=== PATIENT | female | born 1985 | race African-American/Black ===

== ENCOUNTER 2017-08-08 09:45 | Emergency (ER) | payer MEDICAID ==
[2017-08-08 09:52] VITALS: BP 125/71
[2017-08-08] MEDS ORDERED: Ketorolac 60 MG/2 ML SDV IM ONE (12:01)
[2017-08-08] MEDS ORDERED: Sodium Chloride 0.9% 10 ML Syringe FLUSH PRN (13:46)
--- NOTE | 2017-08-08 14:13 | EDM.PDOC ---
ED HPI GENERAL MEDICAL PROBLEM - General Chief Complaint: Lower Extremity Injury/Pain Stated Complaint: [facility] Time Seen by Provider: 08/08/17 11:20 Source of Information: Reports: Patient History Limitations: Reports: No Limitations - History of Present Illness INITIAL COMMENTS - FREE TEXT/NARRATIVE: 32 year old female presents via [facility] ambulance service for evaluation and treatment of bodyaches. Patient reports she has been experiencing body aches off and on for "a while". More recently has been experiencing pain constantly the last 2-3 weeks. Patient reports her sister had RA and she is concerned she has this too. She relocated from [place] to [place] in December. Has not yet established with a PCP. Reports in July in [place] she had blood drawn for a RA work-up but does not know the results. Reports she experiences pain in her joints, Greatest in her knees and left ankle. Also reports pain in her hands , elbows and shoulders. Describes the pain as a bag of water with particles in it and states her joints feel "mushy". Patient also reports tingling in the extremities and swelling in the joints. No skin rashes. Reports the joint pain is worse with movement. No weather correlation. Patient also reports a sore throat and neck pain the last 2 days. Reports associated symptoms of right ear pain, a dry mouth, bodyaches and nausea. No fevers, vomiting, cough, headaches or sinus pressure. She did not get a flu shot this year. 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 Left Leg Pain Score (Numeric/FACES): 8 - Related Data Allergies Allergy/AdvReac Type Severity Reaction Status Date / Time No Known Allergies Allergy Verified 08/08/17 09:52 Home Meds: Home Meds Doxycycline [Vibramycin] 100 mg PO BID #28 tablet 05/16/15 [Rx] Naproxen 500 mg PO BID #20 tablet 05/16/15 [Rx] Ciprofloxacin [Ciprofloxacin HCl] 500 mg PO BID #20 tablet 08/08/17 [Rx] Doxycycline [Vibramycin] 100 mg PO BID #20 cap 08/08/17 [Rx] Past Medical History - Past Health History Medical/Surgical History: Denies Medical/Surgical History Cardiovascular History: Reports: Heart Murmur, High Cholesterol - Past Surgical History GI Surgical History: Reports: Hernia Repair/Other Social & Family History - Family History Family Medical History: Noncontributory - Tobacco Use Smoking Status *Q: Current Every Day Smoker Years of Tobacco use: 12 Packs/Tins Daily: 0.5 Second Hand Smoke Exposure: Yes - Alcohol Use Days Per Week of Alcohol Use: 3 Number of Drinks Per Day: 6 Total Drinks Per Week: 18 - Recreational Drug Use Recreational Drug Use: No Review of Systems - Review of Systems Review Of Systems: See Below Constitutional: Reports: Other (reports body aches). Denies: Fever Ears: Reports: Pain (right) Mouth/Throat: Reports: Painful Swallowing, Other (reports a sore throat and a dry mouth) GI/Abdominal: Reports: Nausea. Denies: Vomiting Musculoskeletal: Reports: Neck Pain, Joint Pain (knees and left ankle ), Joint Swelling (bilaterla knees and nilateral ankles ) Skin: Denies: Rash Neurological: Reports: Tingling. Denies: Headache, Numbness ED EXAM, GENERAL - Physical Exam Exam: See Below Exam Limited By: No Limitations General Appearance: Alert, WD/WN, No Apparent Distress Eye Exam: Bilateral Eye: Normal Inspection Ears: Normal External Exam, Normal Canal, Hearing Grossly Normal, Normal TMs Nose: Normal Inspection Throat/Mouth: Normal Inspection, Normal Lips, Normal Oropharynx, Normal Voice, No Airway Compromise Neck: Normal Inspection, Full Range of Motion, Lymphadenopathy (L), Lymphadenopathy (R) Respiratory/Chest: No Respiratory Distress, Lungs Clear, Normal Breath Sounds Cardiovascular: Normal Peripheral Pulses, Regular Rate, Rhythm, No Murmur GI/Abdominal: Soft, Non-Tender Extremities: Normal Inspection, Normal Range of Motion, No Pedal Edema, Normal Capillary Refill. No: Joint Swelling, Increased Warmth Neurological: Alert, Oriented, Normal Cognition Psychiatric: Normal Affect, Normal Mood Skin Exam: Warm, Dry, No Rash Course - Vital Signs Last Recorded V/S: Last Vital Signs Temp 36.4 C 08/08/17 09:48 Pulse 90 08/08/17 09:48 Resp 16 08/08/17 09:48 BP 125/71 08/08/17 09:48 Pulse Ox 100 08/08/17 09:48 - Orders/Labs/Meds Labs: Laboratory Tests 08/08/17 08/08/17 08/08/17 Range/Units 11:45 11:45 11:45 WBC 10.88 H (3.98-10.04) K/mm3 RBC 4.65 (3.98-5.22) M/mm3 Hgb 13.2 (11.2-15.7) gm/L Hct 40.3 (34.1-44.9) % MCV 86.7 (79.4-94.8) fl MCH 28.4 (25.6-32.2) pg MCHC 32.8 (32.2-35.5) g/dl RDW Std Deviation 45.0 (36.4-46.3) fL Plt Count 256 (182-369) K/mm3 MPV 10.7 (9.4-12.3) fl Neutrophils % (Manual) 70 H (40-60) % Band Neutrophils % 0 (0-10) % Lymphocytes % (Manual) 28 (20-40) % Atypical Lymphs % 0 % Monocytes % (Manual) 2 (2-10) % Eosinophils % (Manual) 0 L (0.7-5.8) % Basophils % (Manual) 0 L (0.1-1.2) Platelet Estimate Adequate RBC Morph Comment Normal Sodium 140 (136-145) mEq/L Potassium 4.2 (3.5-5.1) mEq/L Chloride 107 (98-107) mEq/L Carbon Dioxide 25 (21-32) mEq/L Anion Gap 12.2 (5-15) BUN 7 (7-18) mg/dL Creatinine 0.7 (0.55-1.02) mg/dL Est Cr Clr Drug Dosing 97.21 mL/min Estimated GFR (MDRD) > 60 (>60) mL/min BUN/Creatinine Ratio 10.0 L (14-18) Glucose 79 (74-106) mg/dL Calcium 9.2 (8.5-10.1) mg/dL Total Bilirubin 0.4 (0.2-1.0) mg/dL AST 12 L (15-37) U/L ALT 17 (14-59) U/L Alkaline Phosphatase 70 (46-116) U/L C-Reactive Protein 1.5 H* (<1.0) mg/dL Total Protein 7.4 (6.4-8.2) g/dl Albumin 3.5 (3.4-5.0) g/dl Globulin 3.9 gm/dL Albumin/Globulin Ratio 0.9 L (1-2) HCG, Qual (NEGATIVE) Monoscreen Negative (NEGATIVE) 08/08/17 Range/Units 11:45 WBC (3.98-10.04) K/mm3 RBC (3.98-5.22) M/mm3 Hgb (11.2-15.7) gm/L Hct (34.1-44.9) % MCV (79.4-94.8) fl MCH (25.6-32.2) pg MCHC (32.2-35.5) g/dl RDW Std Deviation (36.4-46.3) fL Plt Count (182-369) K/mm3 MPV (9.4-12.3) fl Neutrophils % (Manual) (40-60) % Band Neutrophils % (0-10) % Lymphocytes % (Manual) (20-40) % Atypical Lymphs % % Monocytes % (Manual) (2-10) % Eosinophils % (Manual) (0.7-5.8) % Basophils % (Manual) (0.1-1.2) Platelet Estimate RBC Morph Comment Sodium (136-145) mEq/L Potassium (3.5-5.1) mEq/L Chloride (98-107) mEq/L Carbon Dioxide (21-32) mEq/L Anion Gap (5-15) BUN (7-18) mg/dL Creatinine (0.55-1.02) mg/dL Est Cr Clr Drug Dosing mL/min Estimated GFR (MDRD) (>60) mL/min BUN/Creatinine Ratio (14-18) Glucose (74-106) mg/dL Calcium (8.5-10.1) mg/dL Total Bilirubin (0.2-1.0) mg/dL AST (15-37) U/L ALT (14-59) U/L Alkaline Phosphatase (46-116) U/L C-Reactive Protein (<1.0) mg/dL Total Protein (6.4-8.2) g/dl Albumin (3.4-5.0) g/dl Globulin gm/dL Albumin/Globulin Ratio (1-2) HCG, Qual Negative (NEGATIVE) Monoscreen (NEGATIVE) Meds: Medications Discontinued Medications Generic Name Dose Route Start Last Admin Trade Name Freq PRN Reason Stop Dose Admin Ceftriaxone Sodium 2 gm 08/08/17 15:26 08/08/17 16:17 Rocephin IM 08/08/17 15:27 Not Given ONETIME ONE Ceftriaxone Sodium Confirm 08/08/17 16:01 08/08/17 16:17 Rocephin Administered 08/08/17 16:02 Not Given Dose 1 gm .ROUTE .STK-MED ONE Ceftriaxone Sodium 1 gm/ 0 gm 08/08/17 16:00 Lidocaine HCl 2.1 ml IM Q24H STACI Ceftriaxone Sodium 1 gm/ 0 gm 08/08/17 16:00 08/08/17 16:12 Lidocaine HCl 2.1 ml IM 1 inj Q24H STACI Administration Ceftriaxone Sodium 1 gm/ 0 gm 08/08/17 16:00 08/08/17 16:13 Lidocaine HCl 2.1 ml IM 1 inj Q24H STACI Administration Iopamidol 100 ml 08/08/17 14:31 08/08/17 14:36 Isovue-300 (61%) IVPUSH 08/08/17 14:32 100 ml ONETIME ONE Administration Ketorolac Tromethamine 60 mg 08/08/17 12:01 08/08/17 12:18 Toradol IM 08/08/17 12:02 60 mg ONETIME ONE Administration Sodium Chloride 10 ml 08/08/17 13:46 08/08/17 14:36 Saline Flush FLUSH 10 ml ASDIRECTED PRN Administration Keep Vein Open Sodium Chloride 10 ml 08/08/17 14:31 08/08/17 14:46 Saline Flush FLUSH 08/08/17 14:32 10 ml ONETIME ONE Administration - Radiology Interpretation Free Text/Narrative:: CT neck Technique: Multiple axial sections through the neck were obtained. Intravenous contrast was utilized. Reconstructed coronal and sagittal images were obtained. Findings: Visualized lung apices are clear. Thyroid gland appears within normal limits. Low density is seen within portions of the left submandibular salivary gland. Please correlate if patient has any symptoms of sialadenitis in this area as an etiology for the low density. This does not appear to be masslike at this time. Right submandibular salivary gland appears normal. Parotid salivary glands appear normal. Mild mucosal thickening is noted within the right maxillary sinus with no air- fluid levels. Scattered lymph nodes are seen which are believed to be within normal limits. Bone window settings were reviewed showing minimal degenerative change within the spine. Small low density area also noted within the lower left parapharyngeal soft tissues. This could also represent an area of mild edema from infection. Impression: 1. Low density within the left submandibular salivary gland possibly representing sialadenitis, please correlate. 2. Mucosal thickening within the right maxillary sinus which appears to be chronic. 3. Small low-density area within the left lower parapharyngeal soft tissues possibly representing infection with mild edema. Please correlate if patient is symptomatic of this. 4. Other incidental findings. - Re-Assessments/Exams Free Text/Narrative Re-Assessment/Exam: 08/08/17 13:50 Influenza and rapid strep returned negative. I reviewed the labs with the patient. She is very concerned about her neck and stresses this more than her other problems currently. Will obtain a CT of the neck to rule out abscess. 08/08/17 15:[address] and lab results with the patient. Encouraged to use lemon drops for the sialadenitis. case discussed with Dr. Lopez. Recommended IM rocephin in the ER and start on PO doxycycline and cipro. Follow-up in 3 days. Discharge instructions as documented. Departure - Departure Time of Disposition: 15:40 Disposition: Home, Self-Care 01 Condition: Fair Clinical Impression: Sialadenitis, Sinusitis, Parapharyngeal space mass - Discharge Information Prescriptions: Ciprofloxacin [Ciprofloxacin HCl] 500 mg PO BID #20 tablet Doxycycline [Vibramycin] 100 mg PO BID #20 cap Instructions: Sinusitis, Adult, [id number] Referrals: PCP,None [Primary Care Provider] - Yanira Hooks [Physician] - Forms: ED Department Discharge, ED Return to Work/School Form Additional Instructions: Take the ciprofloxacin 1 tab twice a day for 10 days. Take the doxycycline 1 tab twice a day for 10 days. Recommend starting a probiotic. These are available [id number]. Rest. make sure you are drinking plenty of fluids. Follow-up with family medicine this or Monday for recheck of your symptoms. Recommend Dr. Hooks at the [facility]. Please call [phone] to schedule with him. Please return to ER if your symptoms change or worsen. Note given for work.
[2017-08-08] MEDS ORDERED: Iopamidol 612 MG/ML 100 ML Bottle IVPUSH ONE (14:31)
[2017-08-08] MEDS ORDERED: Sodium Chloride 0.9% 10 ML Syringe FLUSH ONE (14:31)
--- NOTE | 2017-08-08 15:21 | CT ---
CT neck Technique: Multiple axial sections through the neck were obtained. Intravenous contrast was utilized. Reconstructed coronal and sagittal images were obtained. Findings: Visualized lung apices are clear. Thyroid gland appears within normal limits. Low density is seen within portions of the left submandibular salivary gland. Please correlate if patient has any symptoms of sialadenitis in this area as an etiology for the low density. This does not appear to be masslike at this time. Right submandibular salivary gland appears normal. Parotid salivary glands appear normal. Mild mucosal thickening is noted within the right maxillary sinus with no air-fluid levels. Scattered lymph nodes are seen which are believed to be within normal limits. Bone window settings were reviewed showing minimal degenerative change within the spine. Small low density area also noted within the lower left parapharyngeal soft tissues. This could also represent an area of mild edema from infection. Impression: 1. Low density within the left submandibular salivary gland possibly representing sialadenitis, please correlate. 2. Mucosal thickening within the right maxillary sinus which appears to be chronic. 3. Small low-density area within the left lower parapharyngeal soft tissues possibly representing infection with mild edema. Please correlate if patient is symptomatic of this. 4. Other incidental findings. Diagnostic code #3
[2017-08-08] MEDS ORDERED: cefTRIAXone 1 GM Vial IM ONE (15:26)
[2017-08-08] MEDS ORDERED: cefTRIAXone 1 GM, Lidocaine 1% 2.1 ML IM SCH ×6 (16:00)
[2017-08-08] MEDS ORDERED: cefTRIAXone 1 GM Vial ONE (16:01)
== END 2017-08-08 16:20 | disposition home or self-care (01) ==
LOC: JD.ED 09:45
DX: K11.20 Sialoadenitis, unspecified (principal); J32.9 Chronic sinusitis, unspecified; J39.2 Other diseases of pharynx; F17.210 Nicotine dependence, cigarettes, uncomplicated; E78.00 Pure hypercholesterolemia, unspecified
CPT/HCPCS: 36415; 70491; 80053; 84703; 85025; 86140; 86308; 87081; 87430; 87804; 96372; 99284; J0696; J1885; J7050; Q9967

== ENCOUNTER 2017-10-20 14:24 | Emergency (ER) | payer MEDICAID ==
[2017-10-20 14:56] VITALS: BP 129/89
--- NOTE | 2017-10-20 16:07 | EDM.PDOC ---
ED HPI GENERAL MEDICAL PROBLEM - General Chief Complaint: General Stated Complaint: BODY ACHES Time Seen by Provider: 10/20/17 16:07 Source of Information: Reports: Patient History Limitations: Reports: No Limitations - History of Present Illness INITIAL COMMENTS - FREE TEXT/NARRATIVE: 32-year-old female presents to the ED with generalized severe joint pain progressively worsening over the last 6 months. She is currently under the investigation by Dr. Cope for potential rheumatoid arthritis. Said some lab tests but she required further testing which was done this morning. She states that she aches so bad in her joints particularly in the morning takes an hour and a half to 2 hours to limber up enough to be able to walk. The only joints that seem to be spared her her lower back and hips. Her hands and feet are particularly bad and recently her temporal mandibular joints and upper midneck also became more painful. She has a sister who has a inflammatory connective tissue disorder and she took some of her steroids about 3 months ago. She states after 5 days she felt completely back to normal. Within 5 days of discontinuing medication symptoms return. He has a strong family history of connective tissue disease. She reports that her symptoms are so bad that she aches so bad in the morning that she has to have her son help her get dressed due to being so stiff and sore. She is extremely disabled by current disease process. Onset: Gradual (Over the last 6 months.) Onset Date: 04/26/17 Duration: Week(s):, Chronic, Constant, Getting Worse Location: Reports: Generalized (Involves all of her joints except for her low back and hips.) Quality: Reports: Ache, Throbbing Severity: Moderate (Rates pain 6 out of 10.) Improves with: Reports: Other (Motrin helps a little bit.) Worsens with: Reports: Movement (Movement makes it better after a while but) Context: Denies: Activity ( when she sits for a period time she's right back where she started), Exercise, Lifting, Sick Contact Associated Symptoms: Denies: No Other Symptoms, Confusion, Chest Pain, Cough, cough w sputum, Diaphoresis, Fever/Chills, Headaches, Loss of Appetite, Malaise , Nausea/Vomiting, Rash, Seizure, Shortness of Breath, Syncope, Weakness Treatments SLUBBER TENDER: Reports: NSAIDS (Motrin) Bilateral Shoulder Pain Score (Numeric/FACES): 9 - Related Data Allergies Allergy/AdvReac Type Severity Reaction Status Date / Time No Known Allergies Allergy Verified 08/08/17 09:52 Home Meds: Home Meds Doxycycline [Vibramycin] 100 mg PO BID #24 cap 10/20/17 [Rx] Prednisone [IJD: predniSONE] 20 mg PO ASDIRECTED #20 tab 10/20/17 [Rx] Past Medical History - Past Health History Medical/Surgical History: Denies Medical/Surgical History Cardiovascular History: Reports: Heart Murmur, High Cholesterol - Past Surgical History GI Surgical History: Reports: Hernia Repair/Other Other GI Surgeries/Procedures: navel area hernia repaired Female Surgical History: Reports: Section Social & Family History - Family History Family Medical History: Noncontributory - Tobacco Use Smoking Status *Q: Current Every Day Smoker Years of Tobacco use: 20 Packs/Tins Daily: 1 Second Hand Smoke Exposure: Yes - Caffeine Use Caffeine Use: Reports: Coffee, Soda, Tea - Alcohol Use Days Per Week of Alcohol Use: 3 Number of Drinks Per Day: 6 Total Drinks Per Week: 18 - Recreational Drug Use Recreational Drug Use: No Recreational Drug Type: Reports: Marijuana/Hashish - Living Situation & Occupation Living situation: Reports: Single Occupation: Unemployed ED ROS GENERAL - Review of Systems Review Of Systems: See Below Constitutional: Reports: Malaise, Weakness, Fatigue, Decreased Appetite. Denies : Fever, Chills, Weight Loss HEENT: Reports: Other Respiratory: Reports: No Symptoms (Pain in her temporomandibular joints bilaterally), Cough Cardiovascular: Reports: No Symptoms Endocrine: Reports: Fatigue (Occasional cough and she is a smoker.) GI/Abdominal: Reports: No Symptoms : Reports: No Symptoms Musculoskeletal: Reports: Joint Pain (Generalized joint pain including feet and ankles knees fingers wrists elbows neck and shoulders.), Muscle Pain, Other Skin: Reports: No Symptoms Neurological: Reports: No Symptoms Psychiatric: Reports: No Symptoms Hematologic/Lymphatic: Reports: No Symptoms Immunologic: Reports: No Symptoms ED EXAM, GENERAL - Physical Exam Exam: See Below Exam Limited By: No Limitations General Appearance: Alert, WD/WN, No Apparent Distress Eye Exam: Bilateral Eye: Normal Inspection Ears: Normal TMs Throat/Mouth: Normal Inspection, Normal Lips, Normal Teeth, Normal Oropharynx Head: Atraumatic, Normocephalic Neck: Normal Inspection, Supple, Non-Tender, Full Range of Motion Respiratory/Chest: No Respiratory Distress, Lungs Clear, Normal Breath Sounds, No Accessory Muscle Use, Respiratory Distress (Mild tachypnea at rest 20/m.) Cardiovascular: Normal Peripheral Pulses, Regular Rate, Rhythm, No Edema, No Gallop, No Murmur, No Rub Peripheral Pulses: 2+: Posterior Tibial (L), Posterior Tibial (R), Dorsalis Pedis (L), Dorsalis Pedis (R) GI/Abdominal: Normal Bowel Sounds, Soft, Non-Tender, No Organomegaly Back Exam: Normal Inspection, Full Range of Motion. No: CVA Tenderness (L), CVA Tenderness (R) Extremities: Other Neurological: Alert (No active synovitis i.e. heat coming from any of her joints could be an identified. There is swelling of the MCP joints. There is pain with pronation supination at the elbow and similarly at the knees bilaterally.), Oriented, CN II-XII Intact, Normal Cognition, Normal Gait, No Motor/Sensory Deficits Psychiatric: Normal Affect, Normal Mood Skin Exam: Warm, Dry, Intact, Normal Color, No Rash EKG INTERPRETATION EKG Date: 10/20/17 Time: 16:32 Rhythm: NSR Rate (Beats/Min): 78 Hazel: Normal P-Wave: Present QRS: Normal ST-T: Elevated (There is mild ST segment elevation less than 1 mm in leads 23 aVF V4 to V6. Cannot rule out ischemia.) QT: Normal EKG Interpretation Comments: Abnormal ECG Course - Vital Signs Last Recorded V/S: Last Vital Signs Temp 36.1 C 10/20/17 14:55 Pulse 90 10/20/17 14:55 Resp 20 10/20/17 14:55 BP 129/89 10/20/17 14:55 Pulse Ox 95 10/20/17 14:55 - Orders/Labs/Meds Orders: Active Orders 24 hr Category Date Time Status EKG Documentation Completion [RC] ASDIRECTED Care 10/20/17 15:58 Active Peripheral IV Care [RC] . DIRECTED Care 10/20/17 16:27 Active Ketorolac [Toradol] Med 10/20/17 16:30 Active 30 mg IVPUSH ONETIME Sodium Chloride 0.9% [Saline Flush] Med 10/20/17 16:27 Active 10 ml FLUSH ASDIRECTED PRN Peripheral IV Insertion Adult [OM.PC] Stat Oth 10/20/17 16:27 Ordered EKG 12 Lead [EK] Stat Ther 10/20/17 15:57 Ordered Medication Orders Ketorolac Tromethamine (Toradol) 30 mg IVPUSH ONETIME STACI Last Admin: 10/20/17 16:54 Dose: 30 mg Sodium Chloride (Saline Flush) 10 ml FLUSH ASDIRECTED PRN PRN Reason: Keep Vein Open Last Admin: 10/20/17 16:54 Dose: 10 ml Labs: Laboratory Tests 10/20/17 10/20/17 10/20/17 Range/Units 14:15 14:15 14:15 WBC 12.38 H (3.98-10.04) K/mm3 RBC 4.57 (3.98-5.22) M/mm3 Hgb 13.2 (11.2-15.7) gm/L Hct 39.7 (34.1-44.9) % MCV 86.9 (79.4-94.8) fl MCH 28.9 (25.6-32.2) pg MCHC 33.2 (32.2-35.5) g/dl RDW Std Deviation 44.3 (36.4-46.3) fL Plt Count 307 (182-369) K/mm3 MPV 12.3 (9.4-12.3) fl Neutrophils % (Manual) 69 H (40-60) % Band Neutrophils % 0 (0-10) % Lymphocytes % (Manual) 19 L (20-40) % Atypical Lymphs % 0 % Monocytes % (Manual) 10 (2-10) % Eosinophils % (Manual) 2 (0.7-5.8) % Basophils % (Manual) 0 L (0.1-1.2) Platelet Estimate Adequate RBC Morph Comment Normal ESR 33 H (0-20) mm/hr Sodium 137 (136-145) mEq/L Potassium 3.9 (3.5-5.1) mEq/L Chloride 101 (98-107) mEq/L Carbon Dioxide 23 (21-32) mEq/L Anion Gap 16.9 H (5-15) BUN 8 (7-18) mg/dL Creatinine 0.6 (0.55-1.02) mg/dL Est Cr Clr Drug Dosing 113.41 mL/min Estimated GFR (MDRD) > 60 (>60) mL/min BUN/Creatinine Ratio 13.3 L (14-18) Glucose 114 H (74-106) mg/dL Calcium 9.2 (8.5-10.1) mg/dL Total Bilirubin 0.4 (0.2-1.0) mg/dL AST 41 H (15-37) U/L ALT 43 (14-59) U/L Alkaline Phosphatase 146 H (46-116) U/L Creatine Kinase (26-192) U/L Troponin I (0.00-0.056) ng/mL C-Reactive Protein 2.9 H* (<1.0) mg/dL Total Protein 8.1 (6.4-8.2) g/dl Albumin 3.4 (3.4-5.0) g/dl Globulin 4.7 gm/dL Albumin/Globulin Ratio 0.7 L (1-2) TSH 3rd Generation (0.358-3.74) uIU/mL 10/20/17 10/20/17 Range/Units 14:15 14:15 WBC (3.98-10.04) K/mm3 RBC (3.98-5.22) M/mm3 Hgb (11.2-15.7) gm/L Hct (34.1-44.9) % MCV (79.4-94.8) fl MCH (25.6-32.2) pg MCHC (32.2-35.5) g/dl RDW Std Deviation (36.4-46.3) fL Plt Count (182-369) K/mm3 MPV (9.4-12.3) fl Neutrophils % (Manual) (40-60) % Band Neutrophils % (0-10) % Lymphocytes % (Manual) (20-40) % Atypical Lymphs % % Monocytes % (Manual) (2-10) % Eosinophils % (Manual) (0.7-5.8) % Basophils % (Manual) (0.1-1.2) Platelet Estimate RBC Morph Comment ESR (0-20) mm/hr Sodium (136-145) mEq/L Potassium (3.5-5.1) mEq/L Chloride (98-107) mEq/L Carbon Dioxide (21-32) mEq/L Anion Gap (5-15) BUN (7-18) mg/dL Creatinine (0.55-1.02) mg/dL Est Cr Clr Drug Dosing mL/min Estimated GFR (MDRD) (>60) mL/min BUN/Creatinine Ratio (14-18) Glucose (74-106) mg/dL Calcium (8.5-10.1) mg/dL Total Bilirubin (0.2-1.0) mg/dL AST (15-37) U/L ALT (14-59) U/L Alkaline Phosphatase (46-116) U/L Creatine Kinase 38 (26-192) U/L Troponin I < 0.017 (0.00-0.056) ng/mL C-Reactive Protein (<1.0) mg/dL Total Protein (6.4-8.2) g/dl Albumin (3.4-5.0) g/dl Globulin gm/dL Albumin/Globulin Ratio (1-2) TSH 3rd Generation 1.195 (0.358-3.74) uIU/mL Meds: Medications Generic Name Dose Route Start Last Admin Trade Name Freq PRN Reason Stop Dose Admin Ketorolac Tromethamine 30 mg 10/20/17 16:30 10/20/17 16:54 Toradol IVPUSH 30 mg ONETIME STACI Administration Sodium Chloride 10 ml 10/20/17 16:27 10/20/17 16:54 Saline Flush FLUSH 10 ml ASDIRECTED PRN Administration Keep Vein Open Discontinued Medications Generic Name Dose Route Start Last Admin Trade Name Freq PRN Reason Stop Dose Admin Ketorolac Tromethamine Confirm 10/20/17 16:50 10/20/17 16:54 Toradol Administered 10/20/17 16:51 Not Given Dose 30 mg .ROUTE .STK-MED ONE Methylprednisolone Sodium Succinate 125 mg 10/20/17 16:27 10/20/17 16:54 Solu-Medrol IVPUSH 10/20/17 16:28 125 mg ONETIME ONE Administration - Radiology Interpretation Free Text/Narrative:: 32-year-old female of -[place] descent presents to the ED with generalized polymyalgia and polydipsia arthralgia involving all her joints except for hips and low back. 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 This was primarily because of increased pain in her hands wrists disability. She has fatigue. She has pain all of her joints including her temporomandibular joints mostly clear her cervical spine. He has a strong family history of connective tissue disorders. She has been seeing Dr. Preston investigations have been started for rheumatoid arthritis and other connective tissue disorders but she does not prevent the results at this time. States that she did try her sisters prednisone for a few days and felt wonderful medication within 2-3 days of stopping the medication her symptoms return. This strongly suggests a connective tissue disorder her's current symptoms are probably symmetrical involving hands wrists elbows feet ankles knees and shoulders and temporomandibular joints. I will order lab work without rheumatoid factor since apparently was done earlier this morning. I will just have a sedimentation rate and CRP TSH and CPK done. Her Toradol 30 mg IV and segmental 125 mg IV here in the ED. - Re-Assessments/Exams Free Text/Narrative Re-Assessment/Exam: 10/20/17 17:23 Labs reveal slightly elevated white count at 12.38 with 69% neutrophils and no bands. Hemoglobin is 13.2 with hematocrit of 39.7. Platelet count is 307,000. Sedimentation rate is elevated at 33. Sodium is 137 with potassium of 3.9. Toward 101 with a bicarbonate of 23. And a gap is mildly elevated at 16.9. BUNs 8 with a creatinine of 0.6. EGFR is greater than 60. Glucose is 114. Calcium is 9.2. Bilirubin is 0.4. AST is 41 mildly elevated ALTs 43. Alk phosphatase is 146. Creatinine kinase is 38. Troponin I is less than 0.017. C-reactive protein is mildly elevated at 2.9. TSH is normal at 1.195. 10/20/17 17:37 her disease process suggest either seronegative or seropositive rheumatoid arthritis. Apparently her primary convert care provider has done an extensive investigation as far as rheumatoid factors and antinuclear antibodies and therefore they were not repeated today. These results should be available early next week and have advised the patient to follow up with him early next week. Also the fact that she responded to steroids in the past is highly suggestive that she has a underlying connective tissue disorder. She likely will require referral to a delivery representative to further define her disease process and hopefully get her back to work. Departure - Departure Time of Disposition: 17:30 Disposition: Home, Self-Care 01 Condition: Fair Clinical Impression: Polyarthralgia - Discharge Information Prescriptions: Doxycycline [Vibramycin] 100 mg PO BID #24 cap Prednisone [IJD: predniSONE] 20 mg PO ASDIRECTED #20 tab Referrals: Yanira Hooks [Primary Care Provider] - Forms: ED Department Discharge Additional Instructions: Evaluation in the emergency him today in regards to generalized polyarthralgia which means multiple joint aches and pains that have been going on for about 6 months. His symptom complex is highly suggestive of rheumatoid arthritis either seronegative or seropositive form of this disorder. Dr. Hooks has ordered specialized tests in this regard and I did not repeat them today. The markers IUs for inflammation and infection were mildly to moderately positive. Just a low-grade underlying infective process which may be due to your current sore throat etc. I'm going to therefore suggest treatment with prednisone 20 mg twice daily for 5 days this is to be taken with breakfast and supper and then once a day in the morning only for another 9 days to complete 14 days of therapy Also a course of doxycycline 100 mg twice daily for 12 days to clear up any infective process which may be contributing to joint symptoms. He did receive a dose of Solu-Medrol which is a steroid intravenously while in the ED which will take about 6-8 hours to work. May continue use Motrin 600 mg every 6 hours necessary to relieve pain and inflammation. Suggest follow-up with Dr. Hooks early next week to get the results of test she ordered and likely a referral to a delivery representative is in order. - My Orders Last 24 Hours: My Active Orders 10/20/17 15:57 EKG 12 Lead [EK] Stat 10/20/17 15:58 EKG Documentation Completion [RC] ASDIRECTED 10/20/17 16:27 Peripheral IV Care [RC] . DIRECTED Sodium Chloride 0.9% [Saline Flush] 10 ml FLUSH ASDIRECTED PRN Peripheral IV Insertion Adult [OM.PC] Stat 10/20/17 16:30 Ketorolac [Toradol] 30 mg IVPUSH ONETIME - Assessment/Plan Last 24 Hours: My Active Orders 10/20/17 15:57 EKG 12 Lead [EK] Stat 10/20/17 15:58 EKG Documentation Completion [RC] ASDIRECTED 10/20/17 16:27 Peripheral IV Care [RC] . DIRECTED Sodium Chloride 0.9% [Saline Flush] 10 ml FLUSH ASDIRECTED PRN Peripheral IV Insertion Adult [OM.PC] Stat 10/20/17 16:30 Ketorolac [Toradol] 30 mg IVPUSH ONETIME
[2017-10-20] MEDS ORDERED: methylPREDNISolone Sodium Succinate 125 MG/2 ML SDV IVPUSH ONE (16:27)
[2017-10-20] MEDS ORDERED: Sodium Chloride 0.9% 10 ML Syringe FLUSH PRN (16:27)
[2017-10-20] MEDS ORDERED: Ketorolac 30 MG/ML SDV IVPUSH SCH (16:30)
[2017-10-20] MEDS ORDERED: Ketorolac 30 MG/ML SDV ONE (16:50)
== END 2017-10-20 17:59 | disposition home or self-care (01) ==
LOC: JD.ED 14:24
DX: M25.542 Pain in joints of left hand (principal); M25.541 Pain in joints of right hand; M25.579 Pain in unspecified ankle and joints of unspecified foot; M26.69 Other specified disorders of temporomandibular joint; M54.2 Cervicalgia; F17.210 Nicotine dependence, cigarettes, uncomplicated
CPT/HCPCS: 36415; 80053; 82550; 84443; 84484; 85025; 85652; 86140; 93005; 96374; 96375; 99284; J1885; J2930; J7050

== ENCOUNTER 2018-05-09 09:34 | Emergency (ER) | payer MEDICAID ==
[2018-05-09 09:50] VITALS: BP 120/89
[2018-05-09] MEDS ORDERED: predniSONE 20 MG Tab PO ONE (09:57)
[2018-05-09] MEDS ORDERED: Acetaminophen/oxyCODONE 325-5 MG Tab PO ONE (09:57)
[2018-05-09] MEDS ORDERED: HYDROmorphone 1 MG/ML Syringe IM ONE (12:22)
--- NOTE | 2018-05-09 12:24 | EDM.PDOC ---
ED HPI GENERAL MEDICAL PROBLEM - General Chief Complaint: Upper Extremity Injury/Pain Stated Complaint: AMBULANCE Time Seen by Provider: 05/09/18 09:44 Source of Information: Reports: Patient, EMS History Limitations: Reports: No Limitations - History of Present Illness INITIAL COMMENTS - FREE TEXT/NARRATIVE: The patient presents by [facility] for a fall and joint pain. The patient was recently diagnosed with rheumatoid arthritis. She has not taken her meds for the past 2 months. She missed her appointment. She has been having more joint pain and she fell because of the pain. She did not injure herself. She has no fever, chills, cough, chest pain, abdominal pain, nausea or vomiting. Onset: Gradual Duration: Week(s): Location: Reports: Generalized Quality: Reports: Sharp Severity: Severe Improves with: Reports: Immobilization Worsens with: Reports: Movement Associated Symptoms: Reports: No Other Symptoms Generalized Pain Score (Numeric/FACES): 9 - Related Data Allergies Allergy/AdvReac Type Severity Reaction Status Date / Time No Known Allergies Allergy Verified 05/09/18 09:39 Home Meds: Home Meds oxyCODONE HCl/Acetaminophen [Percocet 5-325 mg Tablet] 1 - 2 each PO Q6HR PRN # 20 tablet 05/09/18 [Rx] predniSONE [Prednisone] 40 mg PO DAILY #10 tablet 05/09/18 [Rx] Past Medical History - Past Health History Medical/Surgical History: Denies Medical/Surgical History Cardiovascular History: Reports: Heart Murmur, High Cholesterol DEVELOPMENT COORDINATOR History: Reports: Musculoskeletal History: Reports: RA - Past Surgical History GI Surgical History: Reports: Hernia Repair/Other Other GI Surgeries/Procedures: navel area hernia repaired Female Surgical History: Reports: Section Social & Family History - Family History Family Medical History: Noncontributory - Tobacco Use Smoking Status *Q: Current Every Day Smoker Years of Tobacco use: 16 Packs/Tins Daily: 1 - Caffeine Use Caffeine Use: Reports: Coffee, Soda - Recreational Drug Use Recreational Drug Use: Yes Drug Use in Last 12 Months: Yes Recreational Drug Type: Reports: Marijuana/Hashish Recreational Drug Use Frequency: Monthly - Living Situation & Occupation Living situation: Reports: Single Occupation: Unemployed Review of Systems - Review of Systems Review Of Systems: See Below Constitutional: Reports: No Symptoms Eyes: Reports: No Symptoms Ears: Reports: No Symptoms Nose: Reports: No Symptoms Mouth/Throat: Reports: No Symptoms Respiratory: Reports: No Symptoms Cardiovascular: Reports: No Symptoms GI/Abdominal: Reports: No Symptoms Genitourinary: Reports: No Symptoms Musculoskeletal: Reports: Joint Pain ED EXAM, GENERAL - Physical Exam Exam: See Below Exam Limited By: No Limitations General Appearance: Alert, No Apparent Distress Ears: Normal External Exam Nose: Normal Inspection Head: Atraumatic, Normocephalic Neck: Normal Inspection Respiratory/Chest: No Respiratory Distress, Lungs Clear, Normal Breath Sounds Cardiovascular: Regular Rate, Rhythm, No Edema, No Murmur GI/Abdominal: Soft, Non-Tender, No Organomegaly, No Mass Back Exam: Normal Inspection Extremities: Other (She has some edema to her fingers with pain upon palpation) Course - Vital Signs Last Recorded V/S: Last Vital Signs Temp 97.6 F 05/09/18 09:47 Pulse 91 05/09/18 09:47 Resp 16 05/09/18 09:47 BP 120/89 05/09/18 09:47 Pulse Ox 98 05/09/18 09:47 - Orders/Labs/Meds Meds: Medications Discontinued Medications Generic Name Dose Route Start Last Admin Trade Name Freq PRN Reason Stop Dose Admin Hydromorphone HCl 1 mg 05/09/18 12:22 05/09/18 12:34 Dilaudid IM 05/09/18 12:23 1 mg ONETIME ONE Administration Oxycodone/Acetaminophen 2 tab 05/09/18 09:57 05/09/18 10:06 Percocet 325-5 Mg PO 05/09/18 09:58 2 tab ONETIME ONE Administration Prednisone 40 mg 05/09/18 09:57 05/09/18 10:06 Prednisone PO 05/09/18 09:58 40 mg ONETIME ONE Administration - Re-Assessments/Exams Free Text/Narrative Re-Assessment/Exam: 05/09/18 12:26 I ordered percocet and prednisone for the pain. That helped some. I will get her a shot of dilaudid 1mg IM. I am waiting for her medication list. 05/09/18 12:55 They did not send the list. I will get her on some prednisone and percocet for pain. I will have her call her doctor today. Departure - Departure Time of Disposition: 12:55 Disposition: Home, Self-Care 01 Condition: Good Clinical Impression: Polyarthralgia Rheumatoid arthritis Qualifiers: Rheumatoid arthritis location: multiple sites Rheumatoid factor presence: unspecified presence Qualified Code(s): M06.9 - Rheumatoid arthritis, unspecified - Discharge Information *PRESCRIPTION DRUG MONITORING PROGRAM REVIEWED*: No *COPY OF PRESCRIPTION DRUG MONITORING REPORT IN PATIENT RAHUL: No Prescriptions: oxyCODONE HCl/Acetaminophen [Percocet 5-325 mg Tablet] 1 - 2 each PO Q6HR PRN # 20 tablet PRN Reason: Pain predniSONE [Prednisone] 40 mg PO DAILY #10 tablet Referrals: Yanira Hooks [Primary Care Provider] - Forms: ED Department Discharge, ED Return to Work/School Form Additional Instructions: Take the prednisone 2 pills daily for 5 days. Take the percocet as needed for pain. Call your doctor and see if you can get more medicine or another appointment. Please return if you are worse.
== END 2018-05-09 13:15 | disposition home or self-care (01) ==
LOC: JD.ED 09:34
DX: M06.9 Rheumatoid arthritis, unspecified (principal); F17.210 Nicotine dependence, cigarettes, uncomplicated
CPT/HCPCS: 96372; 99284; A9270; J1170

== ENCOUNTER 2019-01-12 12:56 | Emergency (ER) | payer MEDICAID ==
[2019-01-12 13:05] VITALS: BP 139/94
--- NOTE | 2019-01-12 13:42 | EDM.PDOC ---
ED HPI GENERAL MEDICAL PROBLEM - General Chief Complaint: ENT Problem Stated Complaint: TOOTH PAIN Time Seen by Provider: 01/12/19 13:08 Source of Information: Reports: Patient History Limitations: Reports: No Limitations - History of Present Illness INITIAL COMMENTS - FREE TEXT/NARRATIVE: Patient is a 33-year-old female presents ED complaining of left upper front tooth pain, gum line pain, swelling to the upper lip, and left-sided facial pain. Patient has a history of poor dentition. States approximately one year ago the #9 tooth cracked and a portion broke off. For the past 2 days she is experiencing increasing pain to this region. This morning she awoke with the swelling and tenderness to the cheek. She is already on amoxicillin for right ear infection and ruptured TM. She's been on a ten-day course of the amoxicillin with no resolution. No documented fever, nausea vomiting, runny nose , postnasal drip, sinus congestion, sore throat, difficulty swallowing, neck pain, and/or ear drainage. She has a history of rheumatoid arthritis and is on methotrexate and prednisone. She was just recently evaluated in the e.d. for acute rheumatoid arthritis flare. Discharged on prednisone and narcotics. She has not been taking anything for the pain. PCP is at [facility]. Ear discomfort has improved. Left Upper Tooth/Teeth Pain Score (Numeric/FACES): 8 - Related Data Allergies Allergy/AdvReac Type Severity Reaction Status Date / Time No Known Allergies Allergy Verified 05/09/18 09:39 Home Meds: Home Meds Hydroxychloroquine [Plaquenil] 200 mg PO BID 12/01/18 [History] Meloxicam 15 mg PO DAILY #12 tablet 12/01/18 [Rx] Methotrexate Sodium [Methotrexate] 5 tab PO ASDIRECTED 12/01/18 [History] predniSONE [Deltasone] 20 mg PO ASDIRECTED #21 tablet 12/01/18 [Rx] Clindamycin HCl 300 mg PO TID #21 capsule 01/12/19 [Rx] Past Medical History - Past Health History Medical/Surgical History: Denies Medical/Surgical History Cardiovascular History: Reports: High Cholesterol, 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: Musculoskeletal History: Reports: Arthritis, RA - Past Surgical History GI Surgical History: Reports: Hernia, Abdominal, Hernia Repair/Other Female Surgical History: Reports: Section Social & Family History - Family History Family Medical History: Noncontributory - Tobacco Use Smoking Status *Q: Current Every Day Smoker Years of Tobacco use: 20 Packs/Tins Daily: 1 - Caffeine Use Caffeine Use: Reports: Coffee, Soda - Recreational Drug Use Recreational Drug Use: No - Living Situation & Occupation Living situation: Reports: with Family, Single 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 ED EXAM, ENT - Physical Exam Exam: See Below Exam Limited By: No Limitations General Appearance: Alert, WD/WN, No Apparent Distress, Other (mild swelling to the upper lip with no lesions or pain present. Mild pain with palpation of the left cheek with no swelling. ) Eye Exam: Bilateral Eye: Normal Inspection, PERRL Ears: Normal External Exam, Normal Canal, Hearing Grossly Normal, Normal TMs Nose: Normal Inspection, Normal Mucousa, No Blood Mouth/Throat: Normal Inspection, Normal Gums (no swelling. pain with palpation to the upper gumline along the #9 tooth. ), Dental Tenderness (#9 tooth... ), Dental Trauma (#9 tooth, poor dentition throughout her mouth.). No: Dental Abcess, Drooling, Dry Mucous Membrane, Gum Swelling, Hoarse Voice, Muffled Voice , Oral Ulcers, Peritonsillar Mass, Pharyngeal Erythema, Throat Pain, Throat Swelling, Tongue Swelling, Tonsillar Erythema, Tonsillar Exudates, Tonsillar Swelling, Trismus, Uvular Deviation Head: Atraumatic, Normocephalic Neck: Normal Inspection, Supple, Non-Tender, Full Range of Motion. No: Lymphadenopathy (L), Lymphadenopathy (R) Respiratory/Chest: No Respiratory Distress, No Accessory Muscle Use Cardiovascular: Normal Peripheral Pulses, Regular Rate, Rhythm Neurological: Alert, Oriented, CN II-XII Intact, Normal Cognition, No Motor/ Sensory Deficits Psychiatric: Normal Affect, Normal Mood Skin: Warm, Dry, Intact, Normal Color, No Rash Course - Vital Signs Last Recorded V/S: Last Vital Signs Temp 97.9 F 01/12/19 13:03 Pulse 90 01/12/19 13:03 Resp 20 01/12/19 13:03 BP 139/94 H 01/12/19 13:03 Pulse Ox 100 01/12/19 13:03 - Re-Assessments/Exams Free Text/Narrative Re-Assessment/Exam: Patient is mental compromise with taking prednisone and methotrexate. She has a history of acute otitis media with ruptured TM resolved with the amoxicillin. Unfortunately this has not worked for the dental issue she currently has today. With IV and said there is some swelling to the upper lip and tenderness with palpation of the upper gum line and also left cheek. She has severely poor dentition that requires consultation by oral surgeon for extraction. I will broaden the antibiotic coverage with clindamycin. Patient was instructed utilize ibuprofen or Aleve along with Tylenol for the discomfort. Stop the amoxicillin and take a [id number] probiotic since she is increased risk for developing C. difficile. Patient voiced understanding that there is a risk for developing C. difficile with taking antibiotics. She understands that repeated antibiotic therapy will increase her risk for cdiff and needs to have decayed teeth repaired or extracted. Return precautions were discussed with the patient. Departure - Departure Time of Disposition: 13:49 Disposition: Home, Self-Care 01 Clinical Impression: Chronic dental infection, Dental caries extending into dentin - Discharge Information Prescriptions: Clindamycin HCl 300 mg PO TID #21 capsule Instructions: Dental Abscess, [id number] Referrals: Karla Castellon PA-C [Primary Care Provider] - Forms: ED Department Discharge, ED Return to Work/School Form Additional Instructions: Please call and make an appointment with a dentist/oral surgeon of your choice for this coming week. It is imperative that you be reevaluated this week for definitive treatment which is extraction of the severely damaged teeth present. This is the culprit here current complaint. Treatment will consist of clindamycin 300 mg 3 times a day for the next 7 days. Utilize ibuprofen 600 mg 3 times a day for pain. May also utilize Tylenol 650 mg 4 times a day for pain as well. Taking [id number] probiotic for the next month. Return to the ED if you develop any new or worsening symptoms.
== END 2019-01-12 14:08 | disposition home or self-care (01) ==
LOC: JD.ED 12:56
DX: K04.7 Periapical abscess without sinus (principal); E78.00 Pure hypercholesterolemia, unspecified; F17.210 Nicotine dependence, cigarettes, uncomplicated; Z79.899 Other long term (current) drug therapy
CPT/HCPCS: 99282; 99283

== ENCOUNTER 2019-01-15 15:08 | Emergency (ER) | payer MEDICAID ==
[2019-01-15 15:55] VITALS: BP 161/90
[2019-01-15] MEDS ORDERED: Ketorolac 30 MG/ML SDV IM ONE (16:04)
[2019-01-15] MEDS ORDERED: Acetaminophen/HYDROcodone 325-5 MG Tab PO ONE (16:06)
[2019-01-15] MEDS ORDERED: Dexamethasone 10 MG/ML SDV IM ONE (16:27)
[2019-01-15] MEDS ORDERED: Ketorolac 30 MG/ML SDV ONE (16:52)
--- NOTE | 2019-01-15 17:23 | EDM.PDOC ---
ED HPI GENERAL MEDICAL PROBLEM - General Chief Complaint: Upper Extremity Injury/Pain Stated Complaint: RIGHT ARM COMPLAINT/PAIN Time Seen by Provider: 01/15/19 15:56 Source of Information: Reports: Patient History Limitations: Reports: No Limitations - History of Present Illness INITIAL COMMENTS - FREE TEXT/NARRATIVE: 33 y/o female presents to ER with cc sever right hand pain. She states the pain started this morning as a throbbing sensation and then her "hand locked up. " She wrapped it up with a kwasi wrap, but the pain got worse. She has a history or RA and was taking methotrexate but ran out of her medications. She has not taken anything for pain because she didn't have anything. She denies any fever, chills or body aches. She is tearful and appears to be uncomfortable. She reports having a rheumatoid specialist in [place] but missed her last appointment. Onset: Today Onset Date: 01/15/19 Onset Time: 09:00 Duration: Getting Worse, Intermittent Location: Reports: Upper Extremity, Right Quality: Reports: Throbbing Severity: Moderate Improves with: Reports: None Worsens with: Reports: Movement Associated Symptoms: Denies: Chest Pain, Fever/Chills, Malaise, Nausea/Vomiting , Rash, Syncope, Weakness Right Hand Pain Score (Numeric/FACES): 10 - Related Data Allergies Allergy/AdvReac Type Severity Reaction Status Date / Time No Known Allergies Allergy Verified 01/15/19 15:55 Home Meds: Home Meds Hydroxychloroquine [Plaquenil] 200 mg PO BID 12/01/18 [History] Methotrexate Sodium [Methotrexate] 5 tab PO ASDIRECTED 12/01/18 [History] predniSONE [Deltasone] 20 mg PO ASDIRECTED #21 tablet 12/01/18 [Rx] Clindamycin HCl 300 mg PO TID #21 capsule 01/12/19 [Rx] Meloxicam 15 mg PO DAILY 12 Days #12 tablet 01/15/19 [Rx] predniSONE 40 mg PO WITHBREAKFAST 5 Days #5 tab 01/15/19 [Rx] Past Medical History - Past Health History Medical/Surgical History: Denies Medical/Surgical History Cardiovascular History: Reports: High Cholesterol, Heart Murmur [employer] History: Reports: Musculoskeletal History: Reports: Arthritis, RA - Past Surgical History GI Surgical History: Reports: Hernia, Abdominal, Hernia Repair/Other Female Surgical History: Reports: Section Social & Family History - Family History Family Medical History: Noncontributory - Tobacco Use Smoking Status *Q: Current Every Day Smoker Years of Tobacco use: 10 Packs/Tins Daily: 0.5 - Caffeine Use Caffeine Use: Reports: Coffee, Soda - Recreational Drug Use Recreational Drug Use: No - Living Situation & Occupation Living situation: Reports: with Family, Single 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) Review of Systems - Review of Systems Review Of Systems: See Below Constitutional: Denies: Chills, Fever Eyes: Reports: No Symptoms Ears: Reports: No Symptoms Nose: Reports: No Symptoms Mouth/Throat: Reports: No Symptoms Respiratory: Reports: No Symptoms Cardiovascular: Reports: No Symptoms GI/Abdominal: Reports: No Symptoms Genitourinary: Reports: No Symptoms Musculoskeletal: Reports: Arm Pain (right hand pain) Skin: Reports: No Symptoms Psychiatric: Reports: No Symptoms ED EXAM, GENERAL - Physical Exam Exam: See Below Exam Limited By: No Limitations General Appearance: Alert, WD/WN, No Apparent Distress Peripheral Pulses: 4+: Brachial (L), Brachial (R), Radial (L), Radial (R) Extremities: Normal Inspection, Normal Range of Motion, Normal Capillary Refill , Arm Pain (right palm tenderness, decreased ROM due to pain, neurovascularly intact. ), Limited Range of Motion. No: Redness Neurological: Alert, Oriented, CN II-XII Intact, Normal Cognition, Normal Gait Psychiatric: Normal Affect, Normal Mood Skin Exam: Warm, Dry, Intact, Normal Color, No Rash Lymphatic: No Adenopathy Course - Vital Signs Last Recorded V/S: Last Vital Signs Temp 98.6 F 01/15/19 15:53 Pulse 114 H 01/15/19 15:53 Resp 16 01/15/19 15:53 BP 161/90 H 01/15/19 15:53 Pulse Ox 97 01/15/19 15:53 - Orders/Labs/Meds Labs: Laboratory Tests 01/15/19 Range/Units 16:08 Urine HCG, Qual Negative (NEGATIVE) Meds: Medications Discontinued Medications Generic Name Dose Route Start Last Admin Trade Name Freq PRN Reason Stop Dose Admin Hydrocodone Bitart/Acetaminophen 1 tab 01/15/19 16:06 01/15/19 16:22 [place] 325-5 Mg PO 01/15/19 16:07 1 tab ONETIME ONE Administration Dexamethasone 15 mg 01/15/19 16:27 01/15/19 16:35 Dexamethasone IM 01/15/19 16:28 15 mg ONETIME ONE Administration Ketorolac Tromethamine 60 mg 01/15/19 16:04 01/15/19 16:53 Toradol IM 01/15/19 16:05 60 mg ONETIME ONE Administration Ketorolac Tromethamine Confirm 01/15/19 16:52 01/15/19 16:58 Toradol Administered 01/15/19 16:53 Not Given Dose 30 mg .ROUTE .ST-MED ONE - Re-Assessments/Exams Free Text/Narrative Re-Assessment/Exam: 01/15/19 17:33 33 y/o female presented to ER with cc right hand pain. She received Toradol, Decadron and [place] and her condition improved. I feel her pain is due to RA flare up since she has recently stopped taking her medications. I will discharge home with a short dose of Prednisone and meloxicam PRN. I instructed her to follow up with her rheumatoid specialist. Instructed to return to the ER for any new or acute worsening symptoms. She verbalized understanding and is comfortable with plan for discharge. Departure - Departure Time of Disposition: 17:46 Disposition: Home, Self-Care 01 Condition: Good Clinical Impression: Rheumatoid arthritis flare - Discharge Information Prescriptions: Meloxicam 15 mg PO DAILY 12 Days #12 tablet predniSONE 40 mg PO WITHBREAKFAST 5 Days #5 tab Instructions: Heat Therapy, [id number], Arthritis, Heat Therapy Referrals: Karla Castellon PA-C [Primary Care Provider] - Forms: ED Department Discharge Additional Instructions: You have been diagnosis with rheumatoid arthritis flare up. Take the Prednisone with food. Follow up with your PCP and rheumatoid specialist. Return to the ER for any new or acute worsening symptoms.
== END 2019-01-15 18:05 | disposition home or self-care (01) ==
LOC: JD.ED 15:08
DX: M06.9 Rheumatoid arthritis, unspecified (principal); F17.210 Nicotine dependence, cigarettes, uncomplicated; E78.00 Pure hypercholesterolemia, unspecified; Z79.899 Other long term (current) drug therapy
CPT/HCPCS: 81025; 96372; 99283; A9270; J1100; J1885; 99284